=== PATIENT | male | born 1965 | race Caucasian/White ===

== ENCOUNTER 2019-11-30 12:37 | Inpatient (IN) | payer OTHER ==
[~2019-11-30] VITALS: Ht 175.3 cm; Wt 86.4 kg
[2019-11-30] MEDS ORDERED: 0.9% SODIUM CHLORIDE 10 ML SYRINGE IVP PRN (13:15)
[2019-11-30] MEDS ORDERED: ACETAMINOPHEN 500 MG TABLET PO ONE (13:30)
[2019-11-30] MEDS ORDERED: SODIUM CHLORIDE 0.9% 1,000 ML IV ONE ×2 (13:30→20:15)
[2019-11-30] MEDS ORDERED: AZITHROMYCIN 500 MG/NS 250 ML IV ONE (14:00)
[2019-11-30] MEDS ORDERED: CefTRIAXone 1 GM/DEXTROSE 50 ML IV ONE (14:00)
[2019-11-30 14:13] LABS: BASOPHILS % (AUTO) 0.5 % (0.0-2.0); EOSINOPHILS % (AUTO) 0.4 % (1.0-6.0); HEMATOCRIT 37.9 % (41-53); HEMOGLOBIN 12.9 g/dL (13.5-17.5); LYMPHOCYTES # (AUTO) 0.7 K/uL (1.0-4.8); LYMPHOCYTES % (AUTO) 14.2 % (22.0-44.0); MEAN CORPUSCULAR HEMOGLOBIN 29.7 pg (26.0-34.0); MEAN CORPUSCULAR VOLUME 87 fL (80-100); MONOCYTES # (AUTO) 0.4 K/uL (0.1-1.0); MONOCYTES % (AUTO) 8.6 % (2.0-9.0); NEUTROPHILS # (AUTO) 3.9 K/uL (1.8-7.7); NEUTROPHILS % (AUTO) 76.3 % (40.0-70.0); PLATELET COUNT (AUTO) 270 K/uL (150-450); RED BLOOD CELL COUNT(AUTO) 4.34 MIL/uL (4.50-5.90); RED CELL DISTRIBUTION WIDTH 12.6 % (11.5-14.5)
[2019-11-30 14:52] LABS: B-TYPE NATRIURETIC PEPTIDE 19 pg/mL (0-100)
[2019-11-30 14:58] LABS: D-DIMER 0.38 mg/L FEU (0.00-0.50); PROTHROMBIN TIME 10.5 SEC (9.4-11.6)
[2019-11-30 15:32] LABS: INFLUENZA TYPE A NEGATIVE FOR TYPE A (NEGATIVE); INFLUENZA TYPE B NEGATIVE FOR TYPE B (NEGATIVE)
[2019-11-30 15:36] LABS: ANION GAP 7 mmol/L (8-16); CALCIUM, TOTAL 8.2 mg/dL (8.8-10.5); CARBON DIOXIDE 29 mmol/L (22-29); CHLORIDE 100 mmol/L (98-107); GLOMERULAR FILTR. RATE CALC > 60 mL/min (>60); GLUCOSE,RANDOM 106 mg/dL (70-110); POTASSIUM 3.9 mmol/L (3.5-5.1); SODIUM SERUM 136 mmol/L (136-145); UREA NITROGEN, BLOOD 10 mg/dL (7-18)
[2019-11-30 15:52] LABS: ALANINE AMINOTRANSFERASE 44 U/L (12-78); ALBUMIN 3.1 g/dL (3.4-5.0); ALKALINE PHOSPHATASE 57 U/L (46-116); ASPARTATE AMINOTRANSFERASE 35 U/L (15-37); BILIRUBIN,TOTAL 0.5 mg/dL (0.1-1.0); CREATINE KINASE, TOTAL ONLY 98 U/L (39-308); TOTAL PROTEIN, SERUM 7.7 g/dL (6.4-8.2)
[2019-11-30] MEDS ORDERED: ALBUTEROL SULFATE HFA 90 MCG/PUFF 8 GM INHALER IH PRN (16:15)
[2019-11-30 17:34] LABS: APPEARANCE,URINE CLEAR (CLEAR); BILIRUBIN,URINE NEGATIVE (NEGATIVE); GLUCOSE, URINE (UA) NEGATIVE (NEGATIVE); KETONES,URINE NEGATIVE (NEGATIVE); LEUKOCYTE ESTERASE ,URINE NEGATIVE (NEGATIVE); NITRATE,URINE NEGATIVE (NEGATIVE); OCCULT BLOOD,URINE NEGATIVE (NEGATIVE); PH,URINE 6.5 (5.0-8.0)
[2019-11-30 17:38] LABS: PROTEIN,URINE NEGATIVE (NEGATIVE)
[2019-11-30] MEDS: ACETAMINOPHEN 325 MG TABLET PO PRN (20:06)
[2019-11-30 20:50] VITALS: BP 129/69
[2019-11-30] MEDS: ZINC SULFATE 220 MG CAPSULE PO SCH (22:34)
[2019-11-30] MEDS: HEPARIN SODIUM,PORCINE 5,000 UNITS/ML VIAL SQ SCH (22:34)
[2019-11-30] MEDS: DOCUSATE SODIUM 100 MG CAPSULE PO SCH (22:34)
[2019-12-01] VITALS (7 sets, daily range): BP systolic 108–145; BP diastolic 66–93
[2019-12-01] MEDS: DOCUSATE SODIUM 100 MG CAPSULE PO SCH ×2 (08:06→20:28)
[2019-12-01] MEDS: HEPARIN SODIUM,PORCINE 5,000 UNITS/ML VIAL SQ SCH ×2 (08:06→15:57)
[2019-12-01] MEDS: FAMOTIDINE 20 MG TABLET PO SCH (08:06)
[2019-12-01] MEDS: ZINC SULFATE 220 MG CAPSULE PO SCH ×2 (08:06→20:28)
[2019-12-01] MEDS: ACETAMINOPHEN 325 MG TABLET PO PRN ×3 (08:32→20:33)
[2019-12-01] MEDS ORDERED: SODIUM CHLORIDE 0.9% 1,000 ML ONE (13:23)
[2019-12-01] MEDS ORDERED: AZITHROMYCIN 500 MG/NS 250 ML IV SCH (14:00)
[2019-12-01] MEDS ORDERED: CefTRIAXone 1 GM/DEXTROSE 50 ML IV SCH (15:00)
[2019-12-01 18:57] LABS: ALANINE AMINOTRANSFERASE 42 U/L (12-78); ALBUMIN 2.7 g/dL (3.4-5.0); ALKALINE PHOSPHATASE 57 U/L (46-116); ANION GAP 9 mmol/L (8-16); ASPARTATE AMINOTRANSFERASE 37 U/L (15-37); BILIRUBIN,TOTAL 0.3 mg/dL (0.1-1.0); C-REACTIVE PROTEIN QUANT 9.68 mg/dL (0.00-0.30); CALCIUM, TOTAL 8.1 mg/dL (8.8-10.5); CARBON DIOXIDE 25 mmol/L (22-29); CHLORIDE 104 mmol/L (98-107); CREATINE KINASE, TOTAL ONLY 147 U/L (39-308); CREATININE 0.97 mg/dL (0.60-1.30); FERRITIN 519 ng/mL (26-388); GLOMERULAR FILTR. RATE CALC > 60 mL/min (>60); GLUCOSE,RANDOM 95 mg/dL (70-110); LACTATE DEHYDROGENASE 308 U/L (85-227); POTASSIUM 3.8 mmol/L (3.5-5.1); SODIUM SERUM 138 mmol/L (136-145); TRIGLYCERIDES 77 mg/dL (15-150); UREA NITROGEN, BLOOD 9 mg/dL (7-18)
[2019-12-01] MEDS ORDERED: DEXAMETHASONE 4 MG TABLET PO ONE (22:00)
[2019-12-01] MEDS ORDERED: REMDESIVIR **INVESTIGATIONAL** 200 MG in SODIUM CHLORIDE 0.9% 210 ML IV ONE (22:00)
[2019-12-02] MEDS: HEPARIN SODIUM,PORCINE 5,000 UNITS/ML VIAL SQ SCH ×3 (00:22→16:47)
[2019-12-02 04:32] VITALS: BP 126/73
[2019-12-02 07:45] VITALS: BP 98/59
[2019-12-02 07:46] LABS: ALANINE AMINOTRANSFERASE 40 U/L (12-78); ALBUMIN 2.6 g/dL (3.4-5.0); ALKALINE PHOSPHATASE 56 U/L (46-116); ANION GAP 8 mmol/L (8-16); ASPARTATE AMINOTRANSFERASE 32 U/L (15-37); BILIRUBIN,TOTAL 0.2 mg/dL (0.1-1.0); CALCIUM, TOTAL 8.7 mg/dL (8.8-10.5); CARBON DIOXIDE 28 mmol/L (22-29); CHLORIDE 103 mmol/L (98-107); CREATININE 0.97 mg/dL (0.60-1.30); GLOMERULAR FILTR. RATE CALC > 60 mL/min (>60); GLUCOSE,RANDOM 164 mg/dL (70-110); POTASSIUM 4.2 mmol/L (3.5-5.1); SODIUM SERUM 139 mmol/L (136-145); TOTAL PROTEIN, SERUM 7.3 g/dL (6.4-8.2); UREA NITROGEN, BLOOD 9 mg/dL (7-18)
[2019-12-02] MEDS ORDERED: DEXAMETHASONE 4 MG TABLET PO SCH (09:00)
[2019-12-02] MEDS: ZINC SULFATE 220 MG CAPSULE PO SCH ×2 (10:33→20:45)
[2019-12-02] MEDS: FAMOTIDINE 20 MG TABLET PO SCH (10:34)
[2019-12-02] MEDS: DOCUSATE SODIUM 100 MG CAPSULE PO SCH ×2 (10:34→20:45)
[2019-12-02 11:53] VITALS: BP 123/74
[2019-12-02 16:21] VITALS: BP 135/96
[2019-12-02 16:30] VITALS: BP 128/88
[2019-12-02 21:51] VITALS: BP 153/76
[2019-12-02] MEDS: REMDESIVIR **INVESTIGATIONAL** 100 MG in SODIUM CHLORIDE 0.9% 230 ML IV SCH (22:51)
[2019-12-03] MEDS: HEPARIN SODIUM,PORCINE 5,000 UNITS/ML VIAL SQ SCH ×4 (00:28→23:48)
[2019-12-03 04:46] VITALS: BP 143/72
[2019-12-03 07:08] LABS: BASOPHILS % (AUTO) 0.1 % (0.0-2.0); EOSINOPHILS % (AUTO) 0 % (1.0-6.0); HEMATOCRIT 38.2 % (41-53); LYMPHOCYTES # (AUTO) 0.7 K/uL (1.0-4.8); LYMPHOCYTES % (AUTO) 11.7 % (22.0-44.0); MEAN CORPUSCULAR HEMOGLOBIN 29.7 pg (26.0-34.0); MEAN CORPUSCULAR VOLUME 87 fL (80-100); MONOCYTES # (AUTO) 0.7 K/uL (0.1-1.0); MONOCYTES % (AUTO) 10.3 % (2.0-9.0); NEUTROPHILS # (AUTO) 4.9 K/uL (1.8-7.7); NEUTROPHILS % (AUTO) 77.9 % (40.0-70.0); PLATELET COUNT (AUTO) 394 K/uL (150-450); RED BLOOD CELL COUNT(AUTO) 4.39 MIL/uL (4.50-5.90); RED CELL DISTRIBUTION WIDTH 12.8 % (11.5-14.5)
[2019-12-03 07:27] LABS: ALANINE AMINOTRANSFERASE 59 U/L (12-78); ALBUMIN 2.6 g/dL (3.4-5.0); ALKALINE PHOSPHATASE 54 U/L (46-116); ASPARTATE AMINOTRANSFERASE 43 U/L (15-37); BILIRUBIN,TOTAL 0.2 mg/dL (0.1-1.0); C-REACTIVE PROTEIN QUANT 6.52 mg/dL (0.00-0.30); CALCIUM, TOTAL 8.8 mg/dL (8.8-10.5); CARBON DIOXIDE 27 mmol/L (22-29); CREATININE 0.99 mg/dL (0.60-1.30); FERRITIN 702 ng/mL (26-388); GLOMERULAR FILTR. RATE CALC > 60 mL/min (>60); GLUCOSE,RANDOM 154 mg/dL (70-110); TOTAL PROTEIN, SERUM 7.2 g/dL (6.4-8.2); UREA NITROGEN, BLOOD 13 mg/dL (7-18)
[2019-12-03 07:57] LABS: ANION GAP 7 mmol/L (8-16); CHLORIDE 103 mmol/L (98-107); POTASSIUM 3.8 mmol/L (3.5-5.1); SODIUM SERUM 137 mmol/L (136-145)
[2019-12-03 08:00] VITALS: BP 113/67
[2019-12-03] MEDS: DEXAMETHASONE 2 MG TABLET PO SCH (08:37)
[2019-12-03] MEDS: DOCUSATE SODIUM 100 MG CAPSULE PO SCH ×2 (08:37→21:19)
[2019-12-03] MEDS: ZINC SULFATE 220 MG CAPSULE PO SCH ×2 (08:38→21:19)
[2019-12-03] MEDS: FAMOTIDINE 20 MG TABLET PO SCH (08:38)
[2019-12-03 15:23] VITALS: BP 133/74
[2019-12-03 19:30] VITALS: BP 114/61
[2019-12-03] MEDS: REMDESIVIR **INVESTIGATIONAL** 100 MG in SODIUM CHLORIDE 0.9% 230 ML IV SCH (23:48)
[2019-12-04 00:35] VITALS: BP 115/76
[2019-12-04 04:20] VITALS: BP 128/73
[2019-12-04 07:37] VITALS: BP 114/71
[2019-12-04 07:44] LABS: ALANINE AMINOTRANSFERASE 99 U/L (12-78); ALBUMIN 2.6 g/dL (3.4-5.0); ALKALINE PHOSPHATASE 52 U/L (46-116); ANION GAP 11 mmol/L (8-16); ASPARTATE AMINOTRANSFERASE 56 U/L (15-37); BILIRUBIN,TOTAL 0.3 mg/dL (0.1-1.0); C-REACTIVE PROTEIN QUANT 3.29 mg/dL (0.00-0.30); CALCIUM, TOTAL 8.5 mg/dL (8.8-10.5); CARBON DIOXIDE 25 mmol/L (22-29); CHLORIDE 102 mmol/L (98-107); CREATININE 0.88 mg/dL (0.60-1.30); FERRITIN 564 ng/mL (26-388); GLOMERULAR FILTR. RATE CALC > 60 mL/min (>60); GLUCOSE,RANDOM 118 mg/dL (70-110); POTASSIUM 3.5 mmol/L (3.5-5.1); SODIUM SERUM 138 mmol/L (136-145); UREA NITROGEN, BLOOD 18 mg/dL (7-18)
[2019-12-04] MEDS: FAMOTIDINE 20 MG TABLET PO SCH (08:07)
[2019-12-04] MEDS: DOCUSATE SODIUM 100 MG CAPSULE PO SCH ×2 (08:07→21:17)
[2019-12-04] MEDS: DEXAMETHASONE 2 MG TABLET PO SCH (08:07)
[2019-12-04] MEDS: ZINC SULFATE 220 MG CAPSULE PO SCH ×2 (08:08→21:17)
[2019-12-04] MEDS: HEPARIN SODIUM,PORCINE 5,000 UNITS/ML VIAL SQ SCH ×4 (08:08→23:44)
[2019-12-04 13:42] LABS: BASOPHILS % (AUTO) 0.2 % (0.0-2.0); EOSINOPHILS % (AUTO) 0.1 % (1.0-6.0); HEMATOCRIT 39.2 % (41-53); HEMOGLOBIN 13.2 g/dL (13.5-17.5); LYMPHOCYTES # (AUTO) 0.9 K/uL (1.0-4.8); LYMPHOCYTES % (AUTO) 11.5 % (22.0-44.0); MEAN CORPUSCULAR HEMOGLOBIN 29.2 pg (26.0-34.0); MEAN CORPUSCULAR HGB CONC 33.6 G/dL (31.0-37.0); MEAN CORPUSCULAR VOLUME 87 fL (80-100); MONOCYTES # (AUTO) 0.4 K/uL (0.1-1.0); MONOCYTES % (AUTO) 5.9 % (2.0-9.0); NEUTROPHILS # (AUTO) 6.1 K/uL (1.8-7.7); NEUTROPHILS % (AUTO) 82.3 % (40.0-70.0); PLATELET COUNT (AUTO) 406 K/uL (150-450); RED BLOOD CELL COUNT(AUTO) 4.51 MIL/uL (4.50-5.90); RED CELL DISTRIBUTION WIDTH 13.1 % (11.5-14.5)
[2019-12-04 14:18] LABS: ALANINE AMINOTRANSFERASE 116 U/L (12-78); ALBUMIN 2.6 g/dL (3.4-5.0); ALKALINE PHOSPHATASE 55 U/L (46-116); ANION GAP 8 mmol/L (8-16); ASPARTATE AMINOTRANSFERASE 69 U/L (15-37); BILIRUBIN,TOTAL 0.2 mg/dL (0.1-1.0); C-REACTIVE PROTEIN QUANT 2.84 mg/dL (0.00-0.30); CALCIUM, TOTAL 8.4 mg/dL (8.8-10.5); CARBON DIOXIDE 26 mmol/L (22-29); CHLORIDE 103 mmol/L (98-107); FERRITIN 541 ng/mL (26-388); GLOMERULAR FILTR. RATE CALC > 60 mL/min (>60); GLUCOSE,RANDOM 192 mg/dL (70-110); POTASSIUM 3.7 mmol/L (3.5-5.1); SODIUM SERUM 137 mmol/L (136-145); TOTAL PROTEIN, SERUM 6.9 g/dL (6.4-8.2); UREA NITROGEN, BLOOD 17 mg/dL (7-18)
[2019-12-04 14:48] LABS: LACTATE DEHYDROGENASE 266 U/L (85-227)
[2019-12-04 15:26] VITALS: BP 122/68
[2019-12-04 20:27] VITALS: BP 113/68
[2019-12-04] MEDS: REMDESIVIR **INVESTIGATIONAL** 100 MG in SODIUM CHLORIDE 0.9% 230 ML IV SCH (23:44)
[2019-12-05 04:50] VITALS: BP 116/75
[2019-12-05 06:29] LABS: BASOPHILS % (AUTO) 0.1 % (0.0-2.0); EOSINOPHILS % (AUTO) 0.7 % (1.0-6.0); HEMATOCRIT 41.3 % (41-53); HEMOGLOBIN 13.8 g/dL (13.5-17.5); LYMPHOCYTES # (AUTO) 1.8 K/uL (1.0-4.8); LYMPHOCYTES % (AUTO) 24.9 % (22.0-44.0); MEAN CORPUSCULAR HEMOGLOBIN 29.3 pg (26.0-34.0); MEAN CORPUSCULAR HGB CONC 33.4 G/dL (31.0-37.0); MEAN CORPUSCULAR VOLUME 88 fL (80-100); MONOCYTES # (AUTO) 0.9 K/uL (0.1-1.0); MONOCYTES % (AUTO) 12.6 % (2.0-9.0); NEUTROPHILS # (AUTO) 4.4 K/uL (1.8-7.7); NEUTROPHILS % (AUTO) 61.7 % (40.0-70.0); PLATELET COUNT (AUTO) 408 K/uL (150-450); RED BLOOD CELL COUNT(AUTO) 4.71 MIL/uL (4.50-5.90); RED CELL DISTRIBUTION WIDTH 12.9 % (11.5-14.5)
[2019-12-05 06:57] LABS: ALANINE AMINOTRANSFERASE 133 U/L (12-78); ALBUMIN 2.6 g/dL (3.4-5.0); ALKALINE PHOSPHATASE 53 U/L (46-116); ANION GAP 8 mmol/L (8-16); ASPARTATE AMINOTRANSFERASE 67 U/L (15-37); BILIRUBIN,TOTAL 0.3 mg/dL (0.1-1.0); C-REACTIVE PROTEIN QUANT 2.08 mg/dL (0.00-0.30); CALCIUM, TOTAL 8.6 mg/dL (8.8-10.5); CARBON DIOXIDE 28 mmol/L (22-29); CHLORIDE 103 mmol/L (98-107); CREATININE 1.02 mg/dL (0.60-1.30); FERRITIN 492 ng/mL (26-388); GLOMERULAR FILTR. RATE CALC > 60 mL/min (>60); GLUCOSE,RANDOM 99 mg/dL (70-110); SODIUM SERUM 139 mmol/L (136-145); TOTAL PROTEIN, SERUM 6.8 g/dL (6.4-8.2); UREA NITROGEN, BLOOD 16 mg/dL (7-18)
[2019-12-05 08:01] VITALS: BP 111/78
[2019-12-05] MEDS: ZINC SULFATE 220 MG CAPSULE PO SCH ×2 (08:50→20:27)
[2019-12-05] MEDS: HEPARIN SODIUM,PORCINE 5,000 UNITS/ML VIAL SQ SCH ×3 (08:50→23:10)
[2019-12-05] MEDS: DOCUSATE SODIUM 100 MG CAPSULE PO SCH ×2 (08:50→20:27)
[2019-12-05] MEDS: FAMOTIDINE 20 MG TABLET PO SCH (08:50)
[2019-12-05] MEDS: DEXAMETHASONE 2 MG TABLET PO SCH (08:51)
[2019-12-05 15:02] VITALS: BP 121/76
[2019-12-05 20:33] VITALS: BP 98/59
[2019-12-05] MEDS: REMDESIVIR **INVESTIGATIONAL** 100 MG in SODIUM CHLORIDE 0.9% 230 ML IV SCH (23:10)
[2019-12-05 23:22] VITALS: BP 107/61
[2019-12-06 06:56] LABS: BASOPHILS % (AUTO) 0.1 % (0.0-2.0); EOSINOPHILS % (AUTO) 1.2 % (1.0-6.0); HEMATOCRIT 41.8 % (41-53); HEMOGLOBIN 13.9 g/dL (13.5-17.5); LYMPHOCYTES # (AUTO) 2.2 K/uL (1.0-4.8); LYMPHOCYTES % (AUTO) 24.2 % (22.0-44.0); MEAN CORPUSCULAR HEMOGLOBIN 29.2 pg (26.0-34.0); MEAN CORPUSCULAR HGB CONC 33.3 G/dL (31.0-37.0); MEAN CORPUSCULAR VOLUME 88 fL (80-100); MONOCYTES # (AUTO) 0.9 K/uL (0.1-1.0); MONOCYTES % (AUTO) 10.2 % (2.0-9.0); NEUTROPHILS # (AUTO) 5.9 K/uL (1.8-7.7); NEUTROPHILS % (AUTO) 64.3 % (40.0-70.0); PLATELET COUNT (AUTO) 432 K/uL (150-450); RED BLOOD CELL COUNT(AUTO) 4.76 MIL/uL (4.50-5.90); RED CELL DISTRIBUTION WIDTH 12.9 % (11.5-14.5)
[2019-12-06 07:25] LABS: ALANINE AMINOTRANSFERASE 171 U/L (12-78); ALBUMIN 2.5 g/dL (3.4-5.0); ALKALINE PHOSPHATASE 53 U/L (46-116); ANION GAP 6 mmol/L (8-16); ASPARTATE AMINOTRANSFERASE 75 U/L (15-37); BILIRUBIN,TOTAL 0.3 mg/dL (0.1-1.0); C-REACTIVE PROTEIN QUANT 1.54 mg/dL (0.00-0.30); CALCIUM, TOTAL 8.6 mg/dL (8.8-10.5); CARBON DIOXIDE 29 mmol/L (22-29); CHLORIDE 100 mmol/L (98-107); CREATININE 1.02 mg/dL (0.60-1.30); FERRITIN 472 ng/mL (26-388); GLOMERULAR FILTR. RATE CALC > 60 mL/min (>60); GLUCOSE,RANDOM 101 mg/dL (70-110); POTASSIUM 4.1 mmol/L (3.5-5.1); SODIUM SERUM 135 mmol/L (136-145); TOTAL PROTEIN, SERUM 6.7 g/dL (6.4-8.2); UREA NITROGEN, BLOOD 17 mg/dL (7-18)
[2019-12-06] MEDS: ZINC SULFATE 220 MG CAPSULE PO SCH ×2 (08:16→20:23)
[2019-12-06] MEDS: FAMOTIDINE 20 MG TABLET PO SCH (08:17)
[2019-12-06 08:18] VITALS: BP 102/53
[2019-12-06] MEDS: HEPARIN SODIUM,PORCINE 5,000 UNITS/ML VIAL SQ SCH ×3 (08:20→23:34)
[2019-12-06] MEDS: DEXAMETHASONE 2 MG TABLET PO SCH (08:20)
[2019-12-06] MEDS: DOCUSATE SODIUM 100 MG CAPSULE PO SCH ×2 (08:20→20:23)
[2019-12-06 15:03] VITALS: BP 101/55
[2019-12-06 20:23] VITALS: BP 101/67
[2019-12-06 23:30] VITALS: BP 104/67
[2019-12-07 06:21] LABS: BASOPHILS % (AUTO) 0.8 % (0.0-2.0); EOSINOPHILS % (AUTO) 1.6 % (1.0-6.0); HEMOGLOBIN 14.1 g/dL (13.5-17.5); LYMPHOCYTES # (AUTO) 2.2 K/uL (1.0-4.8); LYMPHOCYTES % (AUTO) 22.1 % (22.0-44.0); MEAN CORPUSCULAR HEMOGLOBIN 29.6 pg (26.0-34.0); MEAN CORPUSCULAR HGB CONC 33.6 G/dL (31.0-37.0); MEAN CORPUSCULAR VOLUME 88 fL (80-100); MONOCYTES # (AUTO) 0.8 K/uL (0.1-1.0); MONOCYTES % (AUTO) 8.3 % (2.0-9.0); NEUTROPHILS # (AUTO) 6.6 K/uL (1.8-7.7); NEUTROPHILS % (AUTO) 67.2 % (40.0-70.0); PLATELET COUNT (AUTO) 430 K/uL (150-450); RED BLOOD CELL COUNT(AUTO) 4.77 MIL/uL (4.50-5.90)
[2019-12-07 06:49] LABS: C-REACTIVE PROTEIN QUANT 1.04 mg/dL (0.00-0.30); FERRITIN 480 ng/mL (26-388)
[2019-12-07 08:00] VITALS: BP 93/53
[2019-12-07] MEDS: FAMOTIDINE 20 MG TABLET PO SCH (08:11)
[2019-12-07] MEDS: DEXAMETHASONE 2 MG TABLET PO SCH (08:11)
[2019-12-07] MEDS: HEPARIN SODIUM,PORCINE 5,000 UNITS/ML VIAL SQ SCH ×3 (08:11→23:40)
[2019-12-07] MEDS: ZINC SULFATE 220 MG CAPSULE PO SCH ×2 (08:12→20:43)
[2019-12-07] MEDS: DOCUSATE SODIUM 100 MG CAPSULE PO SCH ×2 (08:12→20:43)
[2019-12-07 12:00] VITALS: BP 101/60
[2019-12-07 12:31] LABS: ALANINE AMINOTRANSFERASE 238 U/L (12-78); ALBUMIN 2.8 g/dL (3.4-5.0); ALKALINE PHOSPHATASE 52 U/L (46-116); ANION GAP 12 mmol/L (8-16); ASPARTATE AMINOTRANSFERASE 112 U/L (15-37); BILIRUBIN,TOTAL 0.3 mg/dL (0.1-1.0); CALCIUM, TOTAL 8.8 mg/dL (8.8-10.5); CARBON DIOXIDE 24 mmol/L (22-29); CHLORIDE 100 mmol/L (98-107); CREATININE 1.08 mg/dL (0.60-1.30); GLOMERULAR FILTR. RATE CALC > 60 mL/min (>60); GLUCOSE,RANDOM 85 mg/dL (70-110); POTASSIUM 4.5 mmol/L (3.5-5.1); SODIUM SERUM 136 mmol/L (136-145); UREA NITROGEN, BLOOD 18 mg/dL (7-18)
[2019-12-07 15:57] VITALS: BP 103/5
[2019-12-07 20:45] VITALS: BP 108/64
[2019-12-08 00:01] VITALS: BP 103/67
[2019-12-08 04:45] VITALS: BP 103/62
[2019-12-08 06:37] LABS: HEMATOCRIT 42.7 % (41-53); HEMOGLOBIN 14.5 g/dL (13.5-17.5); MEAN CORPUSCULAR HEMOGLOBIN 29.8 pg (26.0-34.0); MEAN CORPUSCULAR VOLUME 88 fL (80-100); PLATELET COUNT (AUTO) 468 K/uL (150-450); RED BLOOD CELL COUNT(AUTO) 4.88 MIL/uL (4.50-5.90); RED CELL DISTRIBUTION WIDTH 13.2 % (11.5-14.5)
[2019-12-08 07:07] LABS: C-REACTIVE PROTEIN QUANT 0.64 mg/dL (0.00-0.30)
[2019-12-08 07:54] VITALS: BP 109/61
[2019-12-08] MEDS: FAMOTIDINE 20 MG TABLET PO SCH (08:42)
[2019-12-08] MEDS: DEXAMETHASONE 2 MG TABLET PO SCH (08:42)
[2019-12-08] MEDS: ZINC SULFATE 220 MG CAPSULE PO SCH ×2 (08:42→20:52)
[2019-12-08] MEDS: DOCUSATE SODIUM 100 MG CAPSULE PO SCH ×2 (08:43→20:52)
[2019-12-08] MEDS: HEPARIN SODIUM,PORCINE 5,000 UNITS/ML VIAL SQ SCH ×3 (08:44→23:58)
[2019-12-08 12:31] LABS: BAND NEUTROPHILS % (MANUAL) 2 % (0-5); LYMPHOCYTES % (MANUAL) 20 % (22-44); METAMYELOCYTES % 2 % (0-0); MONOCYTES % (MANUAL) 10 % (2-9); MYELOCYTES % 4 % (0-0); REACTIVE LYMPHOCYTES 5 % (0-0); SEGMENTED NEUTROPHILS % 57 % (40-70)
[2019-12-08 18:22] LABS: ALANINE AMINOTRANSFERASE 273 U/L (12-78); ALKALINE PHOSPHATASE 61 U/L (46-116); ANION GAP 6 mmol/L (8-16); ASPARTATE AMINOTRANSFERASE 83 U/L (15-37); BILIRUBIN,TOTAL 0.3 mg/dL (0.1-1.0); CALCIUM, TOTAL 9.1 mg/dL (8.8-10.5); CARBON DIOXIDE 28 mmol/L (22-29); CHLORIDE 98 mmol/L (98-107); CREATININE 1.04 mg/dL (0.60-1.30); GLOMERULAR FILTR. RATE CALC > 60 mL/min (>60); GLUCOSE,RANDOM 120 mg/dL (70-110); POTASSIUM 4.6 mmol/L (3.5-5.1); SODIUM SERUM 132 mmol/L (136-145); TOTAL PROTEIN, SERUM 7.5 g/dL (6.4-8.2); UREA NITROGEN, BLOOD 21 mg/dL (7-18)
[2019-12-08 20:09] VITALS: BP 104/60
[2019-12-08 23:53] VITALS: BP 127/64
[2019-12-09 04:32] VITALS: BP 102/67
[2019-12-09 06:44] LABS: ALANINE AMINOTRANSFERASE 233 U/L (12-78); ALBUMIN 2.9 g/dL (3.4-5.0); ALKALINE PHOSPHATASE 58 U/L (46-116); ANION GAP 8 mmol/L (8-16); ASPARTATE AMINOTRANSFERASE 55 U/L (15-37); BILIRUBIN,TOTAL 0.4 mg/dL (0.1-1.0); CARBON DIOXIDE 27 mmol/L (22-29); CHLORIDE 99 mmol/L (98-107); CREATININE 1.04 mg/dL (0.60-1.30); GLOMERULAR FILTR. RATE CALC > 60 mL/min (>60); GLUCOSE,RANDOM 108 mg/dL (70-110); POTASSIUM 4.2 mmol/L (3.5-5.1); SODIUM SERUM 134 mmol/L (136-145); TOTAL PROTEIN, SERUM 7.2 g/dL (6.4-8.2); UREA NITROGEN, BLOOD 20 mg/dL (7-18)
[2019-12-09 07:20] VITALS: BP 107/74
[2019-12-09] MEDS: ZINC SULFATE 220 MG CAPSULE PO SCH (08:20)
[2019-12-09] MEDS: HEPARIN SODIUM,PORCINE 5,000 UNITS/ML VIAL SQ SCH (08:20)
[2019-12-09] MEDS: DOCUSATE SODIUM 100 MG CAPSULE PO SCH (08:21)
== END 2019-12-09 14:35 | disposition home or self-care (01) | DRG 177 ==
LOC: EMS 12:44 → 5N 16:13 → 6N 12-02 16:30 → 5N 12-02 16:30 → 6N 12-02 21:15
PROVIDERS: ADMIT Internal Medicine; ATTEND Internal Medicine
PROC: XW033E5 Introduction of Remdesivir Anti-infective into Peripheral Vein, Percutaneous Approach, New Technology Group 5 (ICD-10-PCS; principal; 2019-12-02)
PROC: XW033E5 Introduction of Remdesivir Anti-infective into Peripheral Vein, Percutaneous Approach, New Technology Group 5 (ICD-10-PCS; 2019-12-03)
PROC: XW033E5 Introduction of Remdesivir Anti-infective into Peripheral Vein, Percutaneous Approach, New Technology Group 5 (ICD-10-PCS; 2019-12-04)
PROC: XW033E5 Introduction of Remdesivir Anti-infective into Peripheral Vein, Percutaneous Approach, New Technology Group 5 (ICD-10-PCS; 2019-12-05)
DX: U07.1 COVID-19 (principal); J12.89 Other viral pneumonia; E43 Unspecified severe protein-calorie malnutrition; D72.810 Lymphocytopenia; Z68.28 Body mass index [BMI] 28.0-28.9, adult
CPT/HCPCS: 80074; 82728; 83520; 83605; 83615; 84145; 84478; 85379; 86140; 87040; 87804; 93005; J0456; J0696; J1644; J7030; J7050; J8540; 36415-L1; 36415-TC; 71045-TC; 81003-TC; U0003-CS